=== PATIENT | male | born 1965 | race Caucasian/White ===

== ENCOUNTER 2018-07-23 02:23 | Emergency (ER) | payer MEDICAID ==
[~2018-07-23] VITALS: Ht 177.8 cm; Wt 68.0 kg
[2018-07-23 02:31] VITALS: Ht 177.8 cm; Wt 68.0 kg
[2018-07-23 08:04] LABS: microscopic required? YES; urine erythrocyte 2+ (NEGATIVE)
[2018-07-23 10:04] VITALS: BP 116/85
== END 2018-07-23 10:05 | disposition home or self-care (01) ==
LOC: ED 02:23
PROVIDERS: Emergency Medicine
DX: S00.81XA Abrasion of other part of head, initial encounter (principal); F10.129 Alcohol abuse with intoxication, unspecified; W22.8XXA Striking against or struck by other objects, initial encounter; Y93.89 Activity, other specified; Y92.89 Other specified places as the place of occurrence of the external cause; Y99.8 Other external cause status
CPT/HCPCS: 82962; 99406; J1885